=== PATIENT | female | born 1960 | race Caucasian/White ===

== ENCOUNTER 2018-08-31 00:28 | Emergency (ER) | payer MEDICAID ==
[~2018-08-31] VITALS: Ht 165.1 cm; Wt 101.5 kg
[~2018-08-31 00:28] MED LIST: ATOR40TA PO; BACL10TA2 PO; DOCU-273 PO; GABA-530 PO; GLIM2TAB2 PO; HCTZ25T PO; HYDR-4353 PO; LISI10TA PO; METF-436 PO; PANT40TA4 PO; PIOG15TA8 PO; SITA100T15 PO
[2018-08-31 00:36] VITALS: BP_DIAS 93
--- NOTE | 2018-08-31 00:57 | NUR ---
PT HERE WITH C/O PUNCTURE WOUND TO L HEEL THAT OCCURRED THIS AM. WASHED AND DRESSED IT AT HOME, NO BLEEDING NOTED. NEEDS TETANUS.
[2018-08-31] MEDS ORDERED: TETanus/Pertussis (Acell)/Diphther VAC/PF (Tdap-Adult) 0.5ml syringe IM ONE (01:35)
[2018-08-31] MEDS ORDERED: CEPH500C5 PO (01:35)
--- NOTE | 2018-08-31 01:47 | NUR ---
NEOSPORIN AND LARGE BANDAIDE PLACED ON HEEL WOUND, VERONICA WELL. EXTRA SUPPLIES GIVEN TO PT.
[2018-08-31 01:48] VITALS: BP_SYST 18
[2018-08-31] MEDS ORDERED: neomy sulf/bacitrac zn/polymixin b oint 14.2 gm tube TP SCH (08:00)
== END 2018-08-31 01:49 | disposition home or self-care (01) ==
LOC: ER 00:29
DX: S91.312A Laceration without foreign body, left foot, initial encounter (principal); I10 Essential (primary) hypertension; E11.9 Type 2 diabetes mellitus without complications; F32.9 Major depressive disorder, single episode, unspecified; G89.29 Other chronic pain; Z88.1 Allergy status to other antibiotic agents; Z79.899 Other long term (current) drug therapy; Z90.49 Acquired absence of other specified parts of digestive tract; Z90.89 Acquired absence of other organs; Z90.710 Acquired absence of both cervix and uterus; Z79.84 Long term (current) use of oral hypoglycemic drugs; Z87.442 Personal history of urinary calculi; W22.8XXA Striking against or struck by other objects, initial encounter; Y93.89 Activity, other specified; Y92.89 Other specified places as the place of occurrence of the external cause; Y99.8 Other external cause status
CPT/HCPCS: 90471; 90715; 99283

== ENCOUNTER 2021-04-27 10:47 | Outpatient (CLI) | payer MEDICAID ==
[~2021-04-27 10:47] MED LIST changes: -GLIM2TAB2 PO; +GLIM2TAB6 PO; -HCTZ25T PO; +HYDR25TA5 PO; -PANT40TA4 PO; +PANT40TA54 PO
== END 2021-04-27 23:59 | disposition home or self-care (01) ==
LOC: RAD 10:47
PROVIDERS: ATTEND Family Medicine
DX: Z01.818 Encounter for other preprocedural examination (principal)
CPT/HCPCS: 93005

== ENCOUNTER 2023-01-24 14:28 | Outpatient (CLI) | payer MEDICAID | END 2023-01-24 23:59 | disposition home or self-care (01) | LOC: RAD 14:28 | PROVIDERS: ATTEND Family Medicine | DX: K44.9 Diaphragmatic hernia without obstruction or gangrene (principal); Z87.891 Personal history of nicotine dependence; Z90.49 Acquired absence of other specified parts of digestive tract; Z98.890 Other specified postprocedural states | CPT/HCPCS: 71250 ==

== ENCOUNTER → 2023-04-05 | Emergency (ER) | payer MEDICAID ==
[~2023-04-05] VITALS: Ht 165.1 cm; Wt 101.2 kg
[~2023-04-05] MED LIST changes: +HYDR-3965 PO; +MESSAGE TO NURSING PO PRN; +iohexol 300mg/ml 100ml inj. ONE; +morphine 4 MG/ML inj SYRINge IV ONE; +ondansetron/PF 4mg/2ml inj IV ONE
--- NOTE | 2023-04-05 17:36 | NUR ---
PT AWAITING MSE.
--- NOTE | 2023-04-05 18:11 | NUR ---
MSE COMPLETED BY ROWENA NEAL.
[2023-04-05 19:21] LABS: BASOPHILS % (AUTO) 0.7 % (0-1); EOSINOPHILS # (AUTO) 0.3 X10'3 (0-0.9); EOSINOPHILS % (AUTO) 4.9 % (0-6); HEMATOCRIT 41.3 % (35.0-45.0); LYMPHOCYTES # (AUTO) 2.9 X10'3 (1.1-4.8); LYMPHOCYTES % (AUTO) 41.7 % (21-51); MEAN CORPUSCULAR HEMOGLOBIN 30.1 PG (27.0-31.0); MEAN CORPUSCULAR VOLUME 88.6 FL (78-98); MEAN PLATELET VOLUME 8.2 FL (7.4-10.4); MONOCYTES # (AUTO) 0.3 X10'3 (0-0.9); MONOCYTES % (AUTO) 4.6 % (2-12); NEUTROPHILS # (AUTO) 3.3 X10'3 (1.8-7.7); NEUTROPHILS % (AUTO) 48.1 % (42-75); PLATELET COUNT 250 X10'3 (140-440); RED BLOOD COUNT 4.66 X10'6 (4.20-5.60); RED CELL DISTRIBUTION WIDTH 14.5 % (11.5-14.5); WHITE BLOOD COUNT 6.9 X10'3 (4.5-11.0)
[2023-04-05 19:25] LABS: ALANINE AMINOTRANSFERASE 31 U/L (12-78); ALBUMIN 3.6 G/DL (3.4-5.0); ALBUMIN/GLOBULIN RATIO 1.1 (1.1-1.5); ALKALINE PHOSPHATASE 88 IU/L (46-116); ANION GAP 8 (8-16); ASPARTATE AMINO TRANSFERASE 18 U/L (10-37); BILIRUBIN,TOTAL 0.4 MG/DL (0.1-1.0); BLOOD UREA NITROGEN 16 MG/DL (7-18); BUN/CREATININE RATIO 22.2 (10.0-20.0); CALCIUM 9.4 MG/DL (8.5-10.1); CHLORIDE 103 MMOL/L (99-107); CREATININE 0.72 MG/DL (0.40-0.90); GLUCOSE 154 MG/DL (70-104); LIPASE 48 U/L (16-77); POTASSIUM 4.3 MMOL/L (3.5-5.1); SODIUM 138 MMOL/L (135-145); TOTAL CARBON DIOXIDE 27.2 MMOL/L (24-32); eCRCL 75 ML/MIN; eGFR 83 ML/MIN
[2023-04-05 22:05] VITALS: BP 112/63; PULSE 78; TEMP 98.9; O2SAT 96
[2023-04-05 22:07] VITALS: RESP 18
== END | disposition home or self-care (01) ==
LOC: ER 15:52
DX: S20.211A Contusion of right front wall of thorax, initial encounter (principal); X58.XXXA Exposure to other specified factors, initial encounter; Y93.89 Activity, other specified; Y92.89 Other specified places as the place of occurrence of the external cause; Y99.8 Other external cause status
CPT/HCPCS: 36415; 71260; 74177; 80053; 83690; 85025; 96374; 96375; 99285; J2270; J2405; J3490; Q9967

== ENCOUNTER 2023-08-04 19:35 | Emergency (ER) | payer MEDICAID ==
[~2023-08-04] VITALS: Ht 165.1 cm; Wt 95.0 kg
[~2023-08-04 19:35] MED LIST changes: -HYDR-3965 PO; -MESSAGE TO NURSING PO PRN; -iohexol 300mg/ml 100ml inj. ONE; -morphine 4 MG/ML inj SYRINge IV ONE; -ondansetron/PF 4mg/2ml inj IV ONE
[2023-08-04 19:46] VITALS: PULSE 100
[2023-08-05 00:47] VITALS: BP 138/86; RESP 17; TEMP 98; O2SAT 99
== END 2023-08-05 00:49 | disposition home or self-care (01) ==
LOC: ER 19:36
DX: S60.222A Contusion of left hand, initial encounter (principal); I10 Essential (primary) hypertension; E11.9 Type 2 diabetes mellitus without complications; Z88.1 Allergy status to other antibiotic agents; Z79.899 Other long term (current) drug therapy; Z79.2 Long term (current) use of antibiotics; Z79.1 Long term (current) use of non-steroidal anti-inflammatories (NSAID); Z90.49 Acquired absence of other specified parts of digestive tract; Z90.710 Acquired absence of both cervix and uterus; Z87.891 Personal history of nicotine dependence; W19.XXXA Unspecified fall, initial encounter; Y93.89 Activity, other specified; Y92.89 Other specified places as the place of occurrence of the external cause; Y99.8 Other external cause status
CPT/HCPCS: 29125; 73110; 99284

== ENCOUNTER 2023-08-16 10:23 | Emergency (ER) | payer MEDICAID ==
[~2023-08-16] VITALS: Ht 165.1 cm; Wt 100.0 kg
[2023-08-16 10:27] VITALS: TEMP 97.7
[2023-08-16] MEDS ORDERED: ketorolac trometh inj. 60 MG/2 ML VIAL IM ONE (10:45)
[2023-08-16] MEDS: HYDROmorphone 1 mg/ml syringe IM ONE ×2 (11:54→14:01)
[2023-08-16] MEDS: ketorolac trometh. 30mg/ml inj. IM ONE (12:23)
[2023-08-16 13:49] VITALS: BP 124/58; PULSE 84; RESP 18; O2SAT 94
[2023-08-16] MEDS: triamcinolone acetonide 40mg/ml inj IM ONE (14:00)
== END 2023-08-16 15:31 | disposition home or self-care (01) ==
LOC: ER 10:24
DX: S62.202A Unspecified fracture of first metacarpal bone, left hand, initial encounter for closed fracture (principal); J11.1 Influenza due to unidentified influenza virus with other respiratory manifestations; G89.29 Other chronic pain; M54.9 Dorsalgia, unspecified; I10 Essential (primary) hypertension; F32.A Depression, unspecified; E11.9 Type 2 diabetes mellitus without complications; Z87.442 Personal history of urinary calculi; Z90.49 Acquired absence of other specified parts of digestive tract; Z90.710 Acquired absence of both cervix and uterus; Z90.89 Acquired absence of other organs; V89.2XXA Person injured in unspecified motor-vehicle accident, traffic, initial encounter; Y93.89 Activity, other specified; Y92.89 Other specified places as the place of occurrence of the external cause; Y99.8 Other external cause status
CPT/HCPCS: 29125; 71045; 72131; 73110; 96372; 99285; J1170; J1885; J3301

== ENCOUNTER → 2023-08-21 | Outpatient (CLI) | payer MEDICAID | END | disposition home or self-care (01) | LOC: RAD 14:14 | PROVIDERS: ATTEND Family Medicine | DX: M85.871 Other specified disorders of bone density and structure, right ankle and foot (principal); M79.671 Pain in right foot | CPT/HCPCS: 73630 ==

== ENCOUNTER 2023-11-02 08:27 | Outpatient (CLI) | payer MEDICAID | END 2023-11-02 23:59 | disposition home or self-care (01) | LOC: MRI 08:27 | PROVIDERS: ATTEND Pediatrics Sports Medicine | DX: M47.27 Other spondylosis with radiculopathy, lumbosacral region (principal); M51.37 Other intervertebral disc degeneration, lumbosacral region; S83.249A Other tear of medial meniscus, current injury, unspecified knee, initial encounter; M79.604 Pain in right leg; M51.17 Intervertebral disc disorders with radiculopathy, lumbosacral region; M48.07 Spinal stenosis, lumbosacral region; R60.9 Edema, unspecified; M25.552 Pain in left hip; M54.50 Low back pain, unspecified; M25.551 Pain in right hip; M17.12 Unilateral primary osteoarthritis, left knee; M46.1 Sacroiliitis, not elsewhere classified; M25.562 Pain in left knee; G03.8 Meningitis due to other specified causes; X58.XXXA Exposure to other specified factors, initial encounter; Y93.89 Activity, other specified; Y92.89 Other specified places as the place of occurrence of the external cause; Y99.8 Other external cause status | CPT/HCPCS: 72148 ==

== ENCOUNTER 2024-02-05 10:07 | Outpatient (CLI) | payer MEDICAID | END 2024-02-05 23:59 | disposition home or self-care (01) | LOC: RAD 10:07 | PROVIDERS: ATTEND Family Medicine | DX: Z12.2 Encounter for screening for malignant neoplasm of respiratory organs (principal); I25.10 Atherosclerotic heart disease of native coronary artery without angina pectoris; Z87.891 Personal history of nicotine dependence | CPT/HCPCS: 71271 ==

== ENCOUNTER 2024-11-05 12:24 | Outpatient (CLI) | payer MEDICAID ==
--- NOTE | 2024-11-05 14:55 | RADIOLOGY REPORT ---
CLINICAL INDICATION: LEFT FOOT PAIN TECHNIQUE: DI FOOT, COMPLETE (3VW MIN) Comparison: None FINDINGS/IMPRESSION: : There is no evidence of acute fracture or dislocation. Bony demineralization. Soft tissues are intact. Dorsal and plantar calcaneal enthesophytes.
--- NOTE | 2024-11-05 14:56 | RADIOLOGY REPORT ---
CLINICAL INDICATION: LEFT FOOT PAIN TECHNIQUE: DI ANKLE, COMPLETE(3VW MIN) Comparison: None FINDINGS/IMPRESSION: : There is no evidence of acute fracture or dislocation. Dorsal and plantar calcaneal enthesophytes. Soft tissues are intact.
== END 2024-11-05 23:59 | disposition home or self-care (01) ==
LOC: RAD 12:24
PROVIDERS: ATTEND Family Medicine
DX: M77.32 Calcaneal spur, left foot (principal); M79.672 Pain in left foot
CPT/HCPCS: 73610; 73630

== ENCOUNTER 2024-11-05 12:29 | Outpatient (CLI) | payer MEDICAID ==
--- NOTE | 2024-11-05 14:53 | RADIOLOGY REPORT ---
EXAM: DI CHEST,SINGLE VIEW CLINICAL HISTORY: PRE OP TECHNIQUE: Single PA view of the chest WID: COMPARISON: DI CHEST,SINGLE VIEW on DOS: 08/16/23 FINDINGS: Lines and tubes: None Chest: The heart size and pulmonary vasculature is within normal limits. Calcified plaque projects over the aortic arch. No pleural effusion, pneumothorax, or consolidation. The osseous structures are grossly intact. Multilevel thoracic spondylosis. IMPRESSION: No acute cardiopulmonary abnormality.
== END 2024-11-05 23:59 | disposition home or self-care (01) ==
LOC: RAD 12:29
PROVIDERS: ATTEND Specialist
DX: Z01.811 Encounter for preprocedural respiratory examination (principal); M47.814 Spondylosis without myelopathy or radiculopathy, thoracic region; M19.012 Primary osteoarthritis, left shoulder; M25.512 Pain in left shoulder
CPT/HCPCS: 71045